=== PATIENT | female | born 1940 | race African-American/Black ===

== ENCOUNTER 2017-09-07 01:12 | Observation (INO) | payer MEDICARE, MEDICAID ==
[2017-09-07 07:18] VITALS: BMI 43.3
[2017-09-07] MEDS ORDERED: Acetaminophen 325 MG TAB PO PRN ×2 (07:24→08:02)
[2017-09-07] MEDS ORDERED: Ondansetron ODT 4 MG TAB SL PRN (07:24)
[2017-09-07] MEDS ORDERED: Ondansetron HCl/PF 4 MG/2 ML Vial IVP PRN ×2 (07:24→08:02)
[2017-09-07] MEDS ORDERED: HumaLOG 300 UNITS/3 ML VIAL SC PRN ×2 (08:02)
[2017-09-07] MEDS ORDERED: Milk Of Magnesia 30 ML UDCUP PO PRN (08:02)
[2017-09-07] MEDS ORDERED: Artificial Tears 18 DROP/0.9 ML EA EYE PRN (08:02)
[2017-09-07] MEDS ORDERED: Chloraseptic Spray 180 ml Bottle PO PRN (08:02)
[2017-09-07] MEDS ORDERED: Diabetic Tussin 200 MG/10 ML UDCUP PO PRN (08:02)
[2017-09-07] MEDS ORDERED: Loperamide HCl 2 MG CAP PO PRN (08:02)
[2017-09-07] MEDS ORDERED: Senokot 8.6 MG TAB PO PRN (08:02)
[2017-09-07] MEDS ORDERED: Ondansetron ODT 4 MG TAB PO PRN (08:02)
[2017-09-07] MEDS ORDERED: Eucerin (Mineral Oil/Petrolatum,White) 30 gm Jar TOP PRN (08:02)
[2017-09-07] MEDS ORDERED: Mag-Al 1200 mg/1200 mg/30 ML UDCUP PO PRN (08:02)
[2017-09-07] MEDS ORDERED: Docusate 100 MG CAP PO PRN (08:02)
[2017-09-07] MEDS ORDERED: Dextrose 5% in Water 1,000 ML IV PRN (08:02)
[2017-09-07] MEDS ORDERED: Sodium Chloride 0.65% Nasal 44 ML BOT EA NARE PRN (08:02)
[2017-09-07] MEDS ORDERED: Loratadine 10 MG TAB PO PRN (08:02)
[2017-09-07] MEDS ORDERED: hydrALAZINE 20 MG/ML VIAL SLOW IVP PRN (08:02)
[2017-09-07] MEDS ORDERED: Zolpidem Tartrate 5 MG TAB PO PRN (08:02)
[2017-09-07] MEDS ORDERED: Dextrose 50% Abboject 50 ML SYRINGE SLOW IVP PRN (08:02)
[2017-09-07 09:00] LABS: #Basophils 0.1 thou/uL (0.0-0.2); #Eosinphils 0.1 thou/uL (0.0-0.7); #Lymphocytes 2.8 thou/uL (1.20-3.40); #Monocytes 0.6 thou/uL (0.11-0.59); #Neutrophils 2.2 thou/uL (1.40-6.50); %Basophils 1.5 % (0.0-1.0); %Eosinophils 2.5 % (0.0-10.0); %Lymphocytes 48.1 % (21.0-51.0); %Neutrophils 37.8 % (42.0-75.0); Hemoglobin 11.4 g/dL (12.0-16.0); Mean Corpuscular HGB CONC 32.8 g/dL (32.0-36.0); Mean Corpuscular Hemoglobin 32.2 pg (27.0-31.0); Mean Corpuscular Volume 98.1 fl (81.0-99.0); Mean Platelet Volume 7.7 fL (7.4-10.4); Platelet Count 140 thou/uL (130-400); RBC Distribution Width 11.9 % (11.5-14.5); Red Blood Cell (RBC) Count 3.56 mill/uL (4.20-5.40); White Blood Cell (WBC) Count 5.8 thou/uL (4.8-10.8)
[2017-09-07] MEDS ORDERED: Pregabalin 75 MG CAP PO SCH (09:00)
[2017-09-07] MEDS ORDERED: Aspirin 325 MG TAB PO SCH (09:00)
[2017-09-07] MEDS ORDERED: INSULIN GLARGINE 20 UNIT SC SCH (09:00)
[2017-09-07] MEDS ORDERED: Losartan 25 MG TAB PO SCH (09:00)
[2017-09-07] MEDS ORDERED: Carvedilol 25 MG TAB PO SCH (09:00)
[2017-09-07] MEDS ORDERED: Enoxaparin Sodium 40 MG/0.4 ML SYRINGE SC SCH (09:00)
[2017-09-07] MEDS ORDERED: Insulin Detemir 100 UNITS/ML 20 UNITS in Pre-Filled Syringe 1 EACH SC SCH (09:00)
[2017-09-07] MEDS ORDERED: Aspirin 325 mg Enteric Coated Tablet PO SCH (09:00)
[2017-09-07 09:11] LABS: ALT (SGPT) 13 U/L (8-55); AST (SGOT) 12 U/L (5-34); Albumin 3.5 g/dL (3.4-4.8); Alkaline Phosphatase 71 U/L (40-150); Anion Gap 12 mmol/L (10-20); BUN (Urea Nitrogen) 22 mg/dL (9.8-20.1); Bilirubin, Total 0.5 mg/dL (0.2-1.2); Calc. Creatinine Clearance 59 mL/min (70-130); Calcium 9.2 mg/dL (7.8-10.44); Carbon Dioxide 23 mmol/L (23-31); Chloride 109 mmol/L (98-107); Estimated GFR-MDRD 36; Glucose 168 mg/dL (83-110); Potassium 4.1 mmol/L (3.5-5.1); Protein, Total 6.5 g/dL (6.0-8.3); Sodium 140 mmol/L (136-145)
[2017-09-07 10:29] LABS: Bilirubin Negative (Negative); Blood, Urine Negative (Negative); Clarity CLEAR (Clear); Glucose, Urine (Dipstick) Negative (Negative); Leukocyte Small (Negative); Nitrite Negative (Negative); Protein, Urine (Dipstick) Negative (Neg-Trace); Specific Gravity, Urine 1.016 (1.002-1.036); Urobilinogen 0.2 mg/dL (0.2-1.0); pH, Urine 5.5 (5.0-9.0)
[2017-09-07 10:32] LABS: Bacteria/HPF None Seen HPF (None Seen); Hyaline Casts/LPF 0-3 HYALINE CAST LPF (0-3 Hyaline); RBC/HPF 0-3 HPF (0-3); Squamous Epithelial 0-3 HPF (0-3)
--- NOTE | 2017-09-07 11:47 | HP ---
PRIMARY CARE PHYSICIAN: Sindi Short. REASON FOR ADMISSION: Transfer from [facility] Emergency Room for rule out CVA. HISTORY OF PRESENT ILLNESS: A 77-year-old -[place] female who has morbid obesity as well as underlying history of diabetes type 2, hypertension, who went to [facility] Emergency Room last night for complaint of sudden onset of left occipital headache that started while she was doing showe r 09/06/2017 during night. She was also feeling blurred vision and she was feeling left sided facial numbness. She did not have any upper or lower extremity weakness. She was not having any upper or lower extremity paraesthesia. She did not have any facial asymmetry or slurred speech. She did not have any difficulty speaking. She denies any unsteadiness and seizure at home. Patient reports that she experienced exactly similar symptoms about a week ago and she did not go to doctor's office, but again today, episode was more severe, more intense and both more prolonged. Mejia t is why she decided to go to ER for checkout. When I saw this patient this morning, patient's sympt oms completely resolved. She does not have any headache. She does not feel any facial numbness as w ell. She denies any chest pain, palpitations, and shortness of breath. She denies any fever or chills. S he denies any UTI symptoms. She denies any flu-like symptoms. She denies any constipation, diarrhea , melena, and hematochezia. She denies any fall or trauma. ALLERGIES: The patient is allergic to CODEINE, DILAUDID, and MORPHINE. CURRENT HOME MEDICATIONS: Aspirin 81 mg p.o. daily, Lipitor 10 mg p.o. at bedtime, Coreg 12.5 mg p.o . b.i.d., clonazepam 2 mg p.o. at bedtime, Colace 100 mg p.o. at bedtime p.r.n., Lasix 40 mg p.o. shiela ry 7 days, Amaryl 2 mg p.o. daily, Lantus 30 units in the evening and 20 units in morning, losartan 1 00 mg p.o. daily, Zofran 4 mg q.8 hourly p.r.n., Protonix 40 mg p.o. daily, potassium chloride 20 mEq p.o. every 7 days, Lyrica 75 mg p.o. at bedtime, and ranitidine 150 mg p.o. at bedtime. REVIEW OF SYSTEMS: The following complete review of systems was negative, unless otherwise mentioned in the HPI or below: Constitutional: Weight loss or gain, ability to conduct usual activities. Skin: Rash, itching. Eyes: Double vision, pain. ENT/Mouth: Nose bleeding, neck stiffness, pain, tenderness. Cardiovascular: Palpitations, dyspnea on exertion, orthopnea. Respiratory: Shortness of breath, wheezing, cough, hemoptysis, fever or night sweats. Gastrointestinal: Poor appetite, abdominal pain, heartburn, nausea, vomiting, constipation, or diarr hea. Genitourinary: Urgency, frequency, dysuria, nocturia. Musculoskeletal: Pain, swelling. Neurologic/Psychiatric: Anxiety, depression. Allergy/Immunologic: Skin rash, bleeding tendency. Please see my HPI for pertinent positive and negative. All other review of systems reviewed and nega tive except as mentioned in the HPI. PAST MEDICAL HISTORY: Diabetes type 2, hypertension, morbid obesity, osteoarthritis, dyslipidemia, g astroesophageal reflux disease, and peripheral neuropathy. PAST PSYCHIATRIC HISTORY: Anxiety disorder. PAST SURGICAL HISTORY: Right knee surgery, back surgery x2, hysterectomy, cholecystectomy, tubal lig ation, and hernia repair. SOCIAL HISTORY: Patient lives at home. She denies any tobacco, alcohol or illicit drug abuse. FAMILY HISTORY: The patient denies any strong family history of premature coronary artery disease, s troke or cancer. EMERGENCY ROOM COURSE: Emergency room course from [facility] completely reviewed. The patient was given aspirin 324 mg and acetaminophen 650 mg at [place] [facility]. PHYSICAL EXAMINATION: VITAL SIGNS: On arrival, blood pressure 180/95, pulse 60, respiratory rate 18, temperature 98.6, sat uration 95% on room air, and weight 131.1 kilograms. GENERAL: Patient is currently alert, awake, in no obvious acute distress. HEAD: Normocephalic, atraumatic. EYES: Pupils round, reactive to light. Extraocular muscles intact. ENT: Oropharynx within normal limits. Moist mucous membranes. No oral lesions. No pharyngeal eryt jerrica, no exudates. NECK: Supple, no JVD, no thyromegaly, no carotid bruits. LUNGS: Clear to auscultation without any rhonchi or rales. CARDIAC: S1 and S2 regular. No murmur, no gallop, no rub. ABDOMEN: Soft, bowel sounds present. Morbid obesity limiting examination. No peritoneal sign, no s uprapubic discomfort noted. BACK: Examination unremarkable, no CVA tenderness. EXTREMITIES: Upper extremity passive movements of all joints are normal. Lower extremities: No diana ma. Good peripheral pulsation, no calf tenderness. SKIN: No skin rash. HEMATOLOGICAL SYSTEM: No lymphadenopathy. NEUROLOGIC: Nonfocal examination. Currently, patient does not have any focal neurological deficits. She does not have any facial numbness as well. Her pupils are round, reactive to light. Extraocul ar muscle intact. Motor and sensation within normal limits. Reflexes symmetrical. Plantar bilatera l flexor. SIGNIFICANT LABORATORY DATA AND IMAGING DATA: 1. ESR 39, glucose 135, BUN 21, creatinine 1.85. 2. Sodium 141, potassium 4.1, chloride 108, carbon dioxide 24, calcium 9.2. 3. Alkaline phosphatase 76, AST 16, ALT 18, protein 7.1, albumin 3.7, INR 1.0, troponin I 0.02. 4. CBC: WBC 5.7, hemoglobin 11.4, platelets 171. 5. CT brain based on my review, generalized intracranial volume loss, no acute intracranial process. satellite project site monitor showing normal sinus rhythm. ASSESSMENT AND PLAN/IMPRESSION: 1. Acute onset of left-sided facial paraesthesia and left occipital headache, etiology is uncertain. We are keeping this patient in the hospital to rule out any intracranial pathology. Her CT brain i s completely negative. I am suspecting symptoms could be related with her hypertension, but we need to rule out cerebrovascular accident. This could be transient ischemic attack as well because she has multiple risk factors for stroke. We will do full workup while in hospital including MRI brain, car otid ultrasound, and echocardiography. Based on this finding, we will decide whether she can be disc harged home later on today or tomorrow morning. Meanwhile, we will continue her home medications; as pirin 81 mg p.o. daily, Lipitor 10 mg p.o. at bedtime, Coreg 12.5 mg p.o. b.i.d., losartan 100 mg p.o . daily. We will monitor patient's medication while in hospital and titrate based on hemodynamics. 2. Chronic kidney disease stage 3. We will monitor renal function and we will repeat labs again tod ay. 3. Diabetes type 2. We will continue Lantus insulin 30 units in the evening and 20 units in morning and Amaryl 2 mg p.o. daily along with diabetic diet and insulin as per sliding scale per protocol. 4. Dyslipidemia. Check lipid profile and continue Lipitor 10 mg p.o. at bedtime. 5. Hypertension, not well controlled. Continue losartan 100 mg p.o. daily, Coreg 12.5 mg p.o. twice daily and adjust medication while in hospital. 6. Gastroesophageal reflux disease. Continue Protonix 40 mg p.o. daily and ranitidine 150 mg p.o. a t bedtime. 7. Peripheral neuropathy. Continue Lyrica 75 mg p.o. at bedtime. 8. Anxiety disorder. Continue clonazepam 2 mg p.o. at bedtime. 9. Morbid obesity with body mass index of 43. Dietary education given, weight loss education given. Healthy lifestyle measures discussed with the patient. 10. Anemia, normocytic. Patient will be given ferrous sulfate 325 mg p.o. daily. 11. Deep venous thrombosis prophylaxis, Lovenox 40 mg subcutaneously daily. 12. Gastrointestinal prophylaxis, Protonix 40 mg p.o. daily. CODE STATUS: The patient is FULL CODE. Patient does not have any surrogate decision maker. Disposition plan based on clinical course. We are expecting patient's stay in hospital for 24-48 deb rs. Plan of care discussed with the patient in detail.
--- NOTE | 2017-09-07 12:12 | MRI ---
MRI BRAIN NONCONTRAST: HISTORY: TIA. FINDINGS: There is no evidence of acute intracranial hemorrhage or infarct. The ventricles appear normal in si ze, shape, and position. Mild chronic ischemic small-vessel disease and diffuse cortical atrophy are apparent. There is no mass effect or shift of midline structures. IMPRESSION: No acute intracranial abnormalities are demonstrated. POS: [facility]
--- NOTE | 2017-09-07 13:39 | DIS ---
DATE OF ADMISSION: 09/07/2017 at 3:00 a.m. DATE OF DISCHARGE: 09/07/2017 at 4:00 p.m. PRIMARY CARE PHYSICIAN: Dr. Deja Delong, in [place]. DISCHARGE DISPOSITION: Home. PRIMARY DISCHARGE DIAGNOSES: Left occipital headache and left facial paresthesia, ruled out cerebrov ascular accident. SECONDARY DISCHARGE DIAGNOSES: Chronic kidney disease stage 3, diabetes type 2, dyslipidemia, hypert ension, gastroesophageal reflux disease, peripheral neuropathy, anxiety disorder, morbid obesity with BMI of 43 and anemia, normocytic, normochromic. PRIMARY PROCEDURE/OPERATION: None. RADIOLOGICAL INVESTIGATION: MRI brain was normal. CT brain in the emergency room was normal. Carot id Doppler echocardiography. SIGNIFICANT LABS: WBC 5.8, hemoglobin 11.4 and platelets 140. Sodium 140, creatinine 1.66. LFTs no rmal. Urinalysis: Leukocyte esterase small. DISCHARGE MEDICATIONS: Aspirin 81 mg p.o. daily, Lipitor 10 mg p.o. at bedtime, Coreg 12.5 mg p.o. b .i.d., clonazepam 2 mg p.o. at bedtime, Colace 100 mg p.o. at bedtime p.r.n., Lasix 40 mg p.o. every 7 days, Amaryl 2 mg p.o. daily, Lantus insulin 30 units in the subcu evening and 20 units in the morn ing, losartan 100 mg p.o. daily, Protonix 40 mg p.o. daily, potassium chloride 20 mEq p.o. every 7 da ys, Lyrica 75 mg p.o. at bedtime and ranitidine 150 mg p.o. at bedtime. CONTRAINDICATIONS: None. CODE STATUS: FULL CODE. INPATIENT CONSULTANTS: None. ALLERGIES: CODEINE, HYDROCODONE more formed MORPHINE. DISCHARGE PLAN: Post hospital, the patient will follow up with primary care physician in 1 week. HOSPITAL COURSE: This patient has second episode of left occipital headache, blurred vision and left -sided facial paresthesia within a week, but this episode was little bit longer and more intense and that is why she went to [place] [facility] where CT brain was completely unremarkable. Routine b lood test was unremarkable. She was transferred to our emergency room. We did an MRI, which is also normal. Carotid Doppler and echocardiogram, the official report is pending. This patient does not have any current symptoms. She is completely back to normal. At this point, her carotid Doppler and echocardiography is unremarkable, then we will consider discharging her home later on today in after noon time. The patient is doing very well. The patient will continue all her previous medications. The patient was admitted and discharged the same day.
[2017-09-07 15:55] VITALS: BP 145/86
[2017-09-07 16:06] VITALS: TEMP 98.1
--- NOTE | 2017-09-07 16:21 | ULT ---
CAROTID ULTRASOUND 09/07/17 HISTORY: TIA. TECHNIQUE: Multiplanar crooks scale and color doppler images were obtained in a carotid ultrasound. Spectral taiwo sis of the doppler waveforms were performed. IMPRESSION: No significant plaque is seen in either common or internal carotid artery. The doppler waveforms are normal bilaterally. Peak systolic velocity in the right ICA is 51 cm/s. The peak systolic velocity in the right CCA is 74 cm/s. The right ICA/CCA ratio is 0.7. Peak systolic velocity in the left ICA is 55 cm/s. The peak systolic velocity in the left CCA is 118 cm/s. The left ICA/CCA ratio is 0.5. Both vertebral arteries demonstrate antegrade flow without focal stenosis. IMPRESSION: No evidence of hemodynamically significant stenosis. POS: [facility]
[2017-09-07] MEDS ORDERED: Atorvastatin Calcium 10 MG TAB PO SCH (21:00)
[2017-09-07] MEDS ORDERED: Insulin Detemir 100 UNITS/ML 30 UNITS in Pre-Filled Syringe 1 EACH SC SCH (21:00)
[2017-09-07] MEDS ORDERED: Non-Formulary Item 1 EACH (Insulin Glargine [Lantus Vial] 30 UNITS) SC SCH (21:00)
[2017-09-07] MEDS ORDERED: clonazePAM 1 MG TAB PO SCH (21:00)
[2017-09-07] MEDS ORDERED: Famotidine 20 MG TAB PO SCH (21:00)
[2017-09-08] MEDS ORDERED: Glimepiride 2 MG TAB PO SCH (08:00)
[2017-09-08] MEDS ORDERED: Ferrous Sulfate 325 MG TAB PO SCH (08:00)
== END 2017-09-07 18:20 | disposition home or self-care (01) ==
LOC: ERS 01:12 → ERHOLD 03:00 → 2SW 07:03
PROVIDERS: ADMIT Hospitalist; ATTEND Hospitalist
DX: M54.81 Occipital neuralgia (principal); R20.2 Paresthesia of skin; E11.22 Type 2 diabetes mellitus with diabetic chronic kidney disease; I12.9 Hypertensive chronic kidney disease with stage 1 through stage 4 chronic kidney disease, or unspecified chronic kidney disease; N18.3 Chronic kidney disease, stage 3 (moderate); E78.5 Hyperlipidemia, unspecified; K21.9 Gastro-esophageal reflux disease without esophagitis; E11.42 Type 2 diabetes mellitus with diabetic polyneuropathy; F41.9 Anxiety disorder, unspecified; E66.01 Morbid (severe) obesity due to excess calories; M19.90 Unspecified osteoarthritis, unspecified site; D63.1 Anemia in chronic kidney disease; Z68.41 Body mass index [BMI] 40.0-44.9, adult; Z79.4 Long term (current) use of insulin; Z79.82 Long term (current) use of aspirin; Z79.899 Other long term (current) drug therapy; Z88.5 Allergy status to narcotic agent; Z98.51 Tubal ligation status; Z90.49 Acquired absence of other specified parts of digestive tract; Z90.710 Acquired absence of both cervix and uterus; Z98.890 Other specified postprocedural states
CPT/HCPCS: 70551; 80053; 81001; 82962; 85025; 93306; 93880; 94760; 96372; 96374; 99285; G0378; 36415; 36416; J0360; J1650; J1815

== ENCOUNTER 2025-02-26 12:06 | Outpatient (CLI) | payer MEDICARE ==
[2025-02-26 13:02] LABS: Estimated GFR - POC 21.0
== END 2025-02-26 12:07 | disposition home or self-care (01) ==
LOC: CT 12:06
PROVIDERS: ATTEND Internal Medicine Cardiovascular Disease
DX: I70.1 Atherosclerosis of renal artery (principal)
CPT/HCPCS: 36415; 82565

== ENCOUNTER 2025-03-16 12:28 | Outpatient (CLI) | payer MEDICARE | END 2025-03-16 12:29 | disposition home or self-care (01) | LOC: CT 12:28 | PROVIDERS: ATTEND Internal Medicine Cardiovascular Disease | DX: I71.20 Thoracic aortic aneurysm, without rupture, unspecified (principal) | CPT/HCPCS: 71250 ==